=== PATIENT | female | born 1945 | race Two or more races ===

== ENCOUNTER 2019-02-13 22:04 | Emergency (ER) | payer MEDICARE, OTHER ==
[~2019-02-13] VITALS: Ht 154.9 cm; Wt 63.5 kg
[2019-02-13] MEDS ORDERED: METF-836 (22:30)
[2019-02-13] MEDS ORDERED: CLOP75TA15 (22:30)
[2019-02-13] MEDS ORDERED: ACETAMINOPHEN ES 500 MG TABLET PO ONE (23:00)
[2019-02-13] MEDS ORDERED: ONDANSETRON 4 MG TAB.RAPDIS SL ONE (23:00)
[2019-02-13] MEDS ORDERED: ONDANSETRON 4 MG TAB.RAPDIS ONE (23:03)
[2019-02-13] MEDS ORDERED: ACETAMINOPHEN ES 500 MG TABLET ONE (23:03)
--- NOTE | 2019-02-13 23:39 | NUR ---
PT RETURNED FROM CT.
[2019-02-14 01:01] VITALS: BP 138/75
== END 2019-02-14 00:50 | disposition home or self-care (01) ==
LOC: ER 22:06
DX: S00.83XA Contusion of other part of head, initial encounter (principal); S40.011A Contusion of right shoulder, initial encounter; Z95.1 Presence of aortocoronary bypass graft; W18.09XA Striking against other object with subsequent fall, initial encounter; Y93.89 Activity, other specified; Y92.89 Other specified places as the place of occurrence of the external cause; Y99.8 Other external cause status
CPT/HCPCS: 70450; 73030; 99284; Q0162